=== PATIENT | female | born 2000 | race Caucasian/White ===

== ENCOUNTER 2022-06-11 23:22 | Emergency (ER) | payer MEDICAID, SELFPAY ==
[2022-06-11 23:25] VITALS: BP 124/82; PULSE 92; RESP 20; TEMP 36.4; O2SAT 99; BMI 28.0
--- NOTE | 2022-06-12 01:31 | ED_ITS ---
HPI - Extremity Problem General Chief complaint: Extremity Injury, Upper Stated complaint: finger nail ripped off Time Seen by Provider: 06/12/22 01:28 Source: patient Mode of arrival: ambulatory Limitations: no limitations History of Present Illness HPI Narrative: This is a 21-year-old female no significant medical history presenting with pain to her right thumbnail, patient had acrylic nails, hit her finger against a table in the acrylic nail fall off. Complaining of severe pain at the site. Patient is not up-to-date on a tetanus shot. Denies finger pain able to move her thumb without difficulties. Related Data Previous Rx's Medication Instructions Recorded bacitracin 500 unit/gram topical 1 appl topical Q8H #14 grams 06/12/22 ointment cephalexin 500 mg tablet 500 mg PO Q6H 10 days #40 tabs 06/12/22 doxycycline hyclate 100 mg capsule 100 mg PO BID 10 days #20 caps 06/12/22 Allergies Allergy/AdvReac Type Severity Reaction Status Date / Time No Known Allergies Allergy Unverified 02/28/20 19:37 [No Known Allergies*] Review of Systems Review of Systems: Constitutional : No Weight loss, No Fever, No Chills, No Fatigue, No Malaise ENT/Mouth : No sore throat, No Rhinorrhea Eyes: No Eye Pain, No Swelling, No Redness Cardiovascular : No Chest Pain, No SOB, No Dyspnea on Exertion, No Orthopnea, No Edema, No Palpitations Respiratory : No Cough, No Sputum, No Wheezing Gastrointestinal : No Nausea, No Vomiting, No Diarrhea, No Constipation, No abdominal Pain, No Hematochezia, No Melena Genitourinary : No Dysuria, No Urinary Frequency, No Hematuria, Musculoskeletal : No joint pain, No Myalgias, No Joint Swelling Skin : No Skin Lesions, No rash, + right thumb nail pain Neuro : No Weakness, No Numbness, No Dizziness, No Headache Psych : No Anxiety/Panic, No Depression All other systems reviewed and are negative Yes all other systems are reviewed and are negative [facility] Past Medical History Attestation statement: The following information was validated with the patient. Source: old records reviewed and nursing notes reviewed Physical Exam Vital Signs: Vital Signs: Last Vital Signs Temp 97.6 F 06/11/22 23:25 Pulse 92 06/11/22 23:25 Resp 20 06/11/22 23:25 BP 124/82 06/11/22 23:25 Pulse Ox 99 06/11/22 23:25 O2 Del Method 06/11/22 23:25 BMI result Body Mass Index 28.0 Vital signs stable Appearance: Alert.? Oriented X3.? No acute distress.? Head: Normocephalic, atraumatic, no step-offs or deformities Eyes: Pupils equal, round and reactive to light.? ENT: Pharynx normal.? Neck: Normal inspection.? Neck supple.? CVS: Normal heart rate and rhythm.? Pulses normal.? Respiratory: No respiratory distress.? Breath sounds normal.? Abdomen: Soft and nontender.? Skin: Skin warm and dry.? Normal skin color.? Normal skin turgor.? Extremities: No lower extremity edema.? No calf ttp. 5/5 strength to bilateral upper and lower extremities. 2+ radial pulses equal bilateral. Right thumb nail bed exposed with some mild bleeding. Normal sensation to bilateral upper extremity digits. Full range of motion to all fingers. Neuro: Oriented X 3.? No motor deficit.? No sensory deficit. CN 2-12 intact Course Reevaluation(s) Reevaluation #1: Discussed discharge plan with patient, she verbalizes understanding. Patient finger will be dressed in Xeroform dressing. Tetanus shot will be given as well as Toradol. First dose of Keflex will be given here. Will also give doxycycline. Educated patient on diagnosis and treatment plan, answered all question, patient verbalizes understanding. At this time patient will be discharged home, advised to return with new or worsening symptoms. Educated on worrisome signs and symptoms and when to return. At this time I feel comfortable discharge home. Time: 01:34 Medical Decision Making Medical Decision Making [facility] Narrative: 0133 21-year-old female presents with pain to her right thumb nail bed after her acrylic nail fell off. Physical exam with an exposed nail bed images in the chart Plan at this time is to for irrigation of site, Xeroform dressing will be applied. Patient will be discharged home with Keflex and Toradol will be given for pain. Will give tetanus shot as she is not up-to-date. Critical Care Time Critical Care Time Critical Care Time: No Discharge Plan Discharge Clinical Impression: Injury of nail bed of finger Patient Disposition: Home, Self-Care Additional Instructions: Take your medications as prescribed. If you were prescribed antibiotics today, it is important that you take your medication to their entirety, do not skip any doses, do not finish them early. Follow-up with your primary care provider this week. Return to the emergency department with new or worsening symptoms. Such as fevers, chills, chest pain, shortness of breath, nausea, vomiting, dizziness, headache, vision changes, lethargy In case of emergency call 911 We gave you your tetanus shot today. Please take your antibiotics as prescribed. Please keep the dressing that we put on your finger on for 2-3 days. After that you can put antibiotic on the open wound. Look out for signs of infection such as redness that is streaking up her hand, warmth, fevers, chills, numbness, tingling. Please return with new or worsening symptoms. Prescriptions: New bacitracin 500 unit/gram ointment 1 appl topical Q8H Qty: 14 0RF cephalexin 500 mg tablet 500 mg PO Q6H 10 Days Qty: 40 0RF doxycycline hyclate 100 mg capsule 100 mg PO BID 10 Days Qty: 20 0RF Referrals: ED Physician,Generic [Emergency Provider] - 2 days Stand Alone Forms: Work/School Release
[2022-06-12] MEDS: cephALEXin 500 MG CAPSULE PO (02:09)
[2022-06-12] MEDS: Doxycycline Monohydrate 100 MG CAPSULE PO (02:09)
[2022-06-12] MEDS: Ketorolac Tromethamine 30 MG/ML VIAL IM (02:09)
[2022-06-12] MEDS: Diphth,Pertus(ACell),Tet Adult 0.5 ML SYRINGE IM (02:10)
--- NOTE | 2022-06-12 02:26 | PC.NURSE ---
pt medicated according to mar. R thumb nail wrapped per provider request. xeroform in place. pt able to move extremity appropriately. skin pwd. pt ambulatory at discharge. discharge packet and work note provided. pt verbalized understanding of discharge plan.
== END 2022-06-12 02:28 | disposition home or self-care (01) ==
PROVIDERS: Emergency Provider Internal Medicine
DX: S61.101A Unspecified open wound of right thumb with damage to nail, initial encounter (principal); W22.8XXA Striking against or struck by other objects, initial encounter; Y93.9 Activity, unspecified; Y92.9 Unspecified place or not applicable; Y99.9 Unspecified external cause status; Z23 Encounter for immunization
CPT/HCPCS: 90471; 90715; 96372; 99284; J1885

== ENCOUNTER 2022-06-14 09:44 | Emergency (ER) | payer MEDICAID, SELFPAY ==
[2022-06-14 10:08] VITALS: BP 117/67; PULSE 74; RESP 14; O2SAT 100; BMI 28.1
--- NOTE | 2022-06-14 10:32 | ED.GENADULT ---
HPI - General Adult General Chief complaint: General Medical Stated complaint: thumb nail fell off Time Seen by Provider: 06/14/22 10:17 Source: patient Mode of arrival: ambulatory Limitations: no limitations History of Present Illness HPI narrative: 21-year-old female here with complaints of being unable to remove the bandage applied to her right thumbnail. Patient tells me she was here on 06/12 after her fingernail traumatically was removed and she hit her finger with the attached acrylic nail. She had Xeroform dressing placed and was started on Keflex. Patient tells me she was told to remove the bandage in 48 hours. Patient tells me she was unable to remove it today prompting her to come into the ER to be seen. No fevers, chills. Does report some discomfort to the digit. Patient has been taking her antibiotics as prescribed Related Data Previous Rx's Medication Instructions Recorded bacitracin 500 unit/gram topical 1 appl topical Q8H #14 grams 06/12/22 ointment cephalexin 500 mg tablet 500 mg PO Q6H 10 days #40 tabs 06/12/22 doxycycline hyclate 100 mg capsule 100 mg PO BID 10 days #20 caps 06/12/22 ibuprofen 600 mg tablet 600 mg PO Q6H PRN fever or pain 06/14/22 #30 tabs ondansetron 4 mg disintegrating 4 mg PO Q6H PRN nausea and 06/14/22 tablet vomiting #10 tabs Allergies Allergy/AdvReac Type Severity Reaction Status Date / Time No Known Allergies Allergy Unverified 02/28/20 19:37 [No Known Allergies*] Review of Systems Review of Systems: Yes all other systems are reviewed and are negative Constitutional: Constitutional: Reports no additional constitutional complaints, Denies body ache(s), Denies chills, Denies fever(s), Denies headache(s) and Denies weakness Eyes: Eyes: Reports no additional eye complaints and Denies change in vision ENT: Reports system reviewed and no additional complaints, except as documented, Denies dizziness, Denies headache(s), Denies nasal congestion, Denies nasal discharge and Denies neck pain Cardiovascular: Cardiovascular: Reports no additional cardiovascular complaints, Denies chest pain, Denies leg edema and Denies dyspnea Respiratory: Respiratory: Reports no additional respiratory complaints, Denies cough and Denies dyspnea Gastrointestinal: Gastrointestinal: Reports no additional gastrointestinal complaints, Denies abdominal pain, Denies diarrhea, Denies nausea and Denies vomiting Genitourinary: Genitourinary: Reports no additional female genitourinary complaints and Denies urinary incontinence Musculoskeletal: Musculoskeletal: Reports no additional musculoskeletal complaints, Denies back pain, Denies arthralgias, Denies joint swelling, Denies neck pain, Denies numbness and Denies tingling Integumentary/Breasts: Skin/Breast: Reports system reviewed and no additional complaints, except as docu and Denies rash Neurologic: Reports system reviewed and no additional complaints, except as documented, Denies dizziness, Denies headache(s), Denies numbness, Denies tingling and Denies weakness PMFSH Past Medical History Attestation statement: The following information was validated with the patient. Source: old records reviewed and nursing notes reviewed Social History Social History Substance Use Type: Marijuana Advance Directives: No Advance Directives Information Provided: Yes Physical Exam ED Vital Signs: Vital Signs - 24 hr 06/14/22 10:08 Pulse Rate 74 Respiratory Rate 14 Blood Pressure 117/67 Pulse Oximetry 100 Oxygen Delivery Method Room Air BMI result Body Mass Index 28.1 Const General: cooperative, healthy appearing, comfortable and no acute distress Orientation/consciousness: patient oriented x3 Limitations: no limitations HENMT Head: Yes normal to inspection Ears: hearing grossly normal bilaterally Eyes General: appearance normal, both eyes and all related structures Pupils: Equal, round and reactive pupils present Neck Neck: Yes normal visual inspection, Yes full ROM, Yes no lymphadenopathy and Yes no meningeal signs Chest Chest palpation & inspection: normal inspection of the chest Resp Effort & Inspection: normal respiratory effort Auscultation: clear to auscultation bilaterally Cardio Rate: regular rate Rhythm: regular rhythm Peripheral pulses: Peripheral pulses 2+ throughout GI Inspection: Yes normal to inspection Palpation (GI): Soft to palpation and nontender General: Yes no CVA tenderness Back/Spine/Pelvis Back: no CVA tenderness Thoracic/Lumbar Spine: thoracic and lumbar spine normal to inspection Skin General skin exam: no rashes or lesions noted Neuro General: patient oriented x3, moves all extremities and no meningeal signs Cranial nerves: Yes Equal, round and reactive pupils present Cognition (Neuro): normal cognition Gait exam (Neuro): Normal gait present Extrem Other: To the right thumb there is xeroform present-attached with pain when try to be removed Course Course Course Narrative: xerform from was removed. A new dressing was applied. Patient to be discharged home with continue for plan of care. Reviewed worrisome signs and symptoms of when to return to the emergency room. Comfortable plan for discharge home. Medications Administered Discontinued Medications Generic Name Dose Route Start Last Admin Trade Name Freq PRN Reason Stop Dose Admin Ketorolac Tromethamine 30 mg 06/14/22 11:20 06/14/22 11:39 Ketorolac Tromethamine 30 Mg/Ml Vial IM 06/14/22 11:21 30 mg ONCE ONE Administration Medical Decision Making Medical Decision Making [facility] Narrative: 21 yo female here seeking xeroform dressing removal from right thumb. will soak in peroxide/NS Patient with some discomfort so will give Toradol IM. Patient also with some nausea but took her antibiotic this morning on empty stomach. Patient able to tolerate p.o.. Anticipate discharge home with pain control and antiemetic as needed Differential Diagnosis Differential Diagnoses: The differential diagnosis associated with the presentation includes Lab Data [facility] Lab Attestation statement: I reviewed the patient's lab results. Prescription Management I considered prescription management with: Pain Medication Will send home with ibuprofen. Pain well controlled Toradol here. Do not believe that patient needs additional analgesia Patient had antibiotic home Discharge Plan Discharge Clinical Impression: Change of dressing Patient Disposition: Home, Self-Care Instructions: Bandage Change (ED) Additional Instructions: Continue home medication Prescriptions: New ibuprofen 600 mg tablet 600 mg PO Q6H PRN (Reason: fever or pain) Qty: 30 0RF ondansetron 4 mg tablet,disintegrating 4 mg PO Q6H PRN (Reason: nausea and vomiting) Qty: 10 0RF No Action bacitracin 500 unit/gram ointment 1 appl topical Q8H Qty: 14 0RF cephalexin 500 mg tablet 500 mg PO Q6H 10 Days Qty: 40 0RF doxycycline hyclate 100 mg capsule 100 mg PO BID 10 Days Qty: 20 0RF Referrals: [facility] [Primary Care Provider] - Interventions: ED Discharge Assessment Last Done: 06/14/22 11:48 Discharge Date/Time: 06/14/22 11:48
[2022-06-14] MEDS: Ketorolac Tromethamine 30 MG/ML VIAL IM (11:39)
== END 2022-06-14 11:48 | disposition home or self-care (01) ==
PROVIDERS: Emergency Provider Student in an Organized Health Care Education/Training Program
DX: Z48.00 Encounter for change or removal of nonsurgical wound dressing (principal); S61.101D Unspecified open wound of right thumb with damage to nail, subsequent encounter; X58.XXXD Exposure to other specified factors, subsequent encounter
CPT/HCPCS: 96372; 99283; 99284; J1885

== ENCOUNTER 2022-06-20 08:32 | Emergency (ER) | payer MEDICAID, SELFPAY ==
[2022-06-20 08:36] VITALS: BP 110/81; PULSE 101; RESP 16; TEMP 36.6; O2SAT 99; BMI 26.3
[2022-06-20 08:58] LABS: IDNOW Serial# 6674DD1D; Strep A Nucleic Acid Negative (Negative)
[2022-06-20 09:28] LABS: Influenza A PCR POSITIVE (Negative); Influenza B PCR NEGATIVE (Negative); Resp Syncy Virus RNA Qual PCR NEGATIVE (Negative); SARS COV2 PCR INHOUSE NEGATIVE (Negative)
--- NOTE | 2022-06-20 10:19 | ED_ITS ---
HPI - URI/Sore Throat General Chief Complaint: Upper Respiratory Symptoms Stated Complaint: exposed to black mold, CP, coughing Time Seen by Provider: 06/20/22 09:06 Source: patient Mode of arrival: ambulatory Limitations: no limitations History of Present Illness HPI Narrative: 21-year-old female with past medical history of asthma presents to the emergency department today with a four-day history of cough, sore throat, fever, and body aches. Last fever was 2 days ago and managed with ibuprofen with good effect. She is concerned that she has recently been exposed to black mold in her apartment. She denies any chest pain, nausea, vomiting, diarrhea, constipation, headache, vision changes, or dizziness/lightheadedness. MD elicited complaint: fever, cough and sore throat Onset (ago): day(s) (4) Description of mucous: clear and watery Able to tolerate fluids by mouth: Yes Relieving factors: NSAID Treatments prior to arrival: none Related Data Previous Rx's Medication Instructions Recorded bacitracin 500 unit/gram topical 1 appl topical Q8H #14 grams 06/12/22 ointment cephalexin 500 mg tablet 500 mg PO Q6H 10 days #40 tabs 06/12/22 doxycycline hyclate 100 mg capsule 100 mg PO BID 10 days #20 caps 06/12/22 ibuprofen 600 mg tablet 600 mg PO Q6H PRN fever or pain 06/14/22 #30 tabs ondansetron 4 mg disintegrating 4 mg PO Q6H PRN nausea and 06/14/22 tablet vomiting #10 tabs albuterol sulfate 90 mcg/actuation 2 inh inhalation Q4-6H PRN 06/20/22 breath activated powder inhaler shortness of breath #1 ea benzonatate 100 mg capsule 100 mg PO BID PRN cough #10 caps 06/20/22 Allergies Allergy/AdvReac Type Severity Reaction Status Date / Time No Known Allergies Allergy Unverified 02/28/20 19:37 [No Known Allergies*] Review of Systems Review of Systems: Yes all other systems are reviewed and are negative PMFSH Past Medical History Attestation statement: The following information was validated with the patient. Source: old records reviewed Social History Social History Substance Use Type: Marijuana Advance Directives: No Advance Directives Information Provided: No Physical Exam 2 Vital Signs: Vital Signs: Last Vital Signs Temp 98 F 06/20/22 08:36 Pulse 101 H 06/20/22 08:36 Resp 16 06/20/22 08:36 BP 110/81 06/20/22 08:36 Pulse Ox 99 06/20/22 08:36 O2 Del Method 06/20/22 08:36 BMI result Body Mass Index 26.3 Nursing notes and vital signs reviewed. GENERAL APPEARANCE: A&0 x 4, generally well appearing, no acute distress HENMT: Normal to inspection, atraumatic, face symmetrical. Normal external ears, nose, and oropharynx clear. EYE: PERRLA, EOM intact, structures appear normal NECK: Supple without lymphadenopathy. No stiffness or restricted ROM. CHEST: Normal to inspection HEART: Normal rate and regular rhythm, normal S1/S2, no M/R/G LUNGS: LS CTA, moving air well. Able to speak in complete sentences. No crackles, wheezes, or rhonchi auscultated ABDOMEN: Soft, nontender, nondistended. Normal bowel sounds noted BACK: No CVAT, no obvious deformity EXTREMITIES: Moving all extremities without difficulty. No cyanosis, clubbing, or edema. Normal capillary refill. NEUROLOGICAL: Alert and oriented, moving all 4 extremities with equal strength. CN not formally tested but appearing grossly intact. Observed to ambulate with normal gait. Cognition normal SKIN: Warm and dry without any lesions, rash, or visible sores PSYCH: Cooperative, normal affect, normal thought process Medical Decision Making Medical Decision Making [facility] Narrative: 21-year-old female with past medical history of asthma presents to the emergency department today with a four-day history of cough, sore throat, fever, and body aches. Last fever was 2 days ago and managed with ibuprofen with good effect. She is concerned that she has recently been exposed to black mold in her apartment. Physical exam unremarkable, LS CTA, KEARNEY equally with good strength, and A&O x 4. Serology positive for influenza A. History, physical exam, and diagnostic testing consistent with influenza a upper respiratory infection. Low suspicion at this time for pneumonia or bronchitis. Patient is safe for discharge at this time with plan symptoms with [id number] Tylenol, ibuprofen, and/or cough/cold medications with dosing as directed per packaging. Albuterol inhaler and benzonatate cough suppressant prescribed to her preferred pharmacy for further management of symptoms. HPI, PE, diagnostics, and plan discussed with patient and family with no unanswered questions at this time. Patient educated to return to the emergency department with new, worsening, or concerning emergent symptoms. Recommended to follow-up with her primary care provider for further treatment and management. *Refer to Course for additional information on consultations, diagnostic interpretation, consultations, emergency department stay, conversations with patient and family, shared decision making with patient, and more information on medical decision making* Lab Data Labs: Lab Results 06/20/22 06/20/22 Range/Units 08:42 08:43 Influenza Type A (PCR) POSITIVE A (Negative) Influenza Type B (PCR) NEGATIVE (Negative) RSV RNA Qual (PCR) NEGATIVE (Negative) SARS-CoV-2 RNA (RT-PCR) NEGATIVE (Negative) S. pyogenes GrpA LIBRADO Negative (Negative) Discharge Plan Discharge Clinical Impression: Influenza A Patient Disposition: Home, Self-Care Instructions: Influenza (ED), Droplet Precautions (ED) Additional Instructions: You have been diagnosed with influenza a. This is a viral respiratory infection that requires no prescriptions at this time. You may manage your symptoms with [id number] Tylenol, Motrin, and cough/cold medications with dosing as directed on packaging. Prescriptions for an albuterol inhaler and cough suppressant has been sent to your preferred pharmacy. Please use as directed. Please return to the emergency department with any new, worsening, or concerning emergent symptoms. Please follow-up the primary care provider for further treatment and management. Prescriptions: New albuterol sulfate 90 mcg/actuation aerosol powdr breath activated 2 inh inhalation Q4-6H PRN (Reason: shortness of breath) Qty: 1 0RF benzonatate 100 mg capsule 100 mg PO BID PRN (Reason: cough) Qty: 10 0RF No Action bacitracin 500 unit/gram ointment 1 appl topical Q8H Qty: 14 0RF cephalexin 500 mg tablet 500 mg PO Q6H 10 Days Qty: 40 0RF doxycycline hyclate 100 mg capsule 100 mg PO BID 10 Days Qty: 20 0RF ibuprofen 600 mg tablet 600 mg PO Q6H PRN (Reason: fever or pain) Qty: 30 0RF ondansetron 4 mg tablet,disintegrating 4 mg PO Q6H PRN (Reason: nausea and vomiting) Qty: 10 0RF [place] [facility] [place]] [facility]] [facility] [[facility]] Stand Alone Forms: Work/School Release Interventions: ED Discharge Assessment Last Done: 06/20/22 09:42 Discharge Date/Time: 06/20/22 09:43 Print Language: Hungarian
== END 2022-06-20 09:43 | disposition home or self-care (01) ==
PROVIDERS: Emergency Provider Emergency Medicine Emergency Medical Services
DX: J10.1 Influenza due to other identified influenza virus with other respiratory manifestations (principal); R50.9 Fever, unspecified; Z20.822 Contact with and (suspected) exposure to COVID-19; Z20.828 Contact with and (suspected) exposure to other viral communicable diseases
CPT/HCPCS: 0241U; 87651; 99282

== ENCOUNTER 2023-01-09 16:07 | Emergency (ER) | payer MEDICAID, SELFPAY ==
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
[2023-01-09 16:11] VITALS: BP 131/94; PULSE 84; RESP 18; TEMP 36.3; O2SAT 98; BMI 25.6
[2023-01-09 20:59] LABS: Appearance Urine Clear; Color Urine Yellow; Glucose Urine UA Negative (Negative); Leukocyte Esterase Urine Negative (Negative); Nitrite Urine Negative (Negative); Specific Gravity - Urine >= 1.030 (1.005-1.025); Urine Blood Negative (Negative); Urine Ketones 40 mg/dL (Negative); Urine Protein Negative (Neg-Trace)
[2023-01-09 21:13] LABS: UPreg QC Valid YES; Urine Pregnancy NEGATIVE (NEGATIVE)
[2023-01-09 21:27] LABS: MANUAL DIFF FLAG NO
[2023-01-09 21:28] LABS: Basophils Percent Auto 0.3 % (0-2); Eosinophils Absolute Auto 0.1 X10*3/uL (0.0-0.4); Eosinophils Percent Auto 1.2 % (0-4); Hematocrit 39.8 % (37.0-47.0); Hemoglobin 13.4 g/dl (12.0-16.0); Imm Gran Abs Auto 0.02 X10*3/uL (0.00-0.03); Imm Gran Pct Auto 0.3 % (0.0-0.4); Lymphocytes Absolute Auto 1.9 X10*3/uL (1.2-4.9); Lymphocytes Percent Auto 32.3 % (20-40); Mean Corpuscular HGB Conc 33.7 g/dl (31.0-35.0); Mean Corpuscular Hemoglobin 31.2 pg (27.0-33.0); Mean Corpuscular Volume 92.8 fL (80.0-98.0); Mean Platelet Volume 12.1 fL (9.4-12.3); Monocytes Absolute Auto 0.4 X10*3/uL (0.1-1.2); Monocytes Percent Auto 6.6 % (2-11); Neutrophils Absolute Auto 3.5 x10*3/uL (2.0-8.3); Neutrophils Percent Auto 59.3 % (45-73); Platelet Count 166 X10*3/uL (160-400); Red Blood Count 4.29 X10*6/uL (4.20-5.50); Red Cell Distribution Width 12.1 % (11.0-16.0); White Blood Count 5.9 X10*3/uL (4.8-10.8)
[2023-01-09 21:45] LABS: Alanine Aminotransferase 11 U/L (0-31); Albumin Level 4.6 g/dL (3.5-5.0); Alkaline Phosphatase 36 U/L (39-117); Anion Gap 16 (12-20); Aspartate Amino Transferase 12 U/L (5-31); Bilirubin Direct 0.4 mg/dL (0.0-0.5); Bilirubin Total 1.1 mg/dL (0.0-1.0); Blood Urea Nitrogen 9 mg/dL (9-16); Calcium 9.7 mg/dL (8.4-10.2); Carbon Dioxide 23 mmol/L (22-29); Chloride 106 mmol/L (96-108); Estimated Glomerular Filt Rate > 60; Glucose Random 89 mg/dL (60-115); Potassium 3.2 mmol/L (3.3-5.1); Sodium 142 mmol/L (135-145); Total Protein 7.6 g/dL (6.5-8.0)
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
[2023-01-09] MEDS: Doxycycline Monohydrate 100 MG CAPSULE PO (23:10)
[2023-01-09] MEDS: metroNIDAZOLE 500 MG TABLET PO (23:10)
[2023-01-09] MEDS: cefTRIAXone sodium 500 MG VIAL IM (23:10)
[2023-01-09] MEDS: Ondansetron ODT 4 MG TAB.RAPDIS TRANSLINGU (23:11)
--- NOTE | 2023-01-09 23:23 | PC.NURSE ---
pt medicated per ANDRES- ceftriaxone IM admin in left deltoid- well tolerated by pt.
[2023-01-10 03:24] LABS: CT PCR NOT DETECTED (Not Detect.); NG PCR NOT DETECTED (Not Detect.)
[2023-01-10 03:59] LABS: Syphilis Screen Nonreactive (Nonreactive)
[2023-01-10 04:31] LABS: HBS Num1 2.76 mIU/mL (0-7.99); HBc Num1 0.14 S/CO (0.00-0.79); HBsAGNum1 0.42 S/CO (0.00-0.99); Hepatitis B Core Antibody Nonreactive (Nonreactive); Hepatitis B Surface Antigen Negative (Negative); ~HepC Num1 0.08 S/CO (0.00-0.79); ~Hepatitis B Surface Antibody NONREACTIVE (Nonreactive); ~Hepatitis C Antibody Nonreactive (Nonreactive)
[2023-01-10 04:42] LABS: HIV AB/AG Nonreactive (Nonreactive); HIV Num 1 0.17 S/CO (0.00-0.99)
[2023-01-10 09:25] LABS: BV Int Neg Control Negative (Negative); BV Int Pos Control Positive (Positive)
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
== END 2023-01-09 23:24 | disposition home or self-care (01) ==
PROVIDERS: Nurse Practitioner Family; Physician Assistant; Emergency Provider Internal Medicine
DX: T76.21XA Adult sexual abuse, suspected, initial encounter (principal); Z20.2 Contact with and (suspected) exposure to infections with a predominantly sexual mode of transmission; Z79.899 Other long term (current) drug therapy
CPT/HCPCS: 0353U; 36415; 80048; 80076; 81003; 81025; 85025; 86704; 86706; 86780; 86803; 87340; 87389; 87480; 87510; 87660; 96372; 99283; 99284; J0696

== ENCOUNTER 2023-04-11 14:40 | Emergency (ER) | payer MEDICAID, SELFPAY ==
--- NOTE | ~2023-04-11 | XR_ITS ---
EXAMINATION: XR CHEST CLINICAL INFORMATION: Reason for Exam chest pain COMPARISON: None TECHNIQUE: 2 views of the chest FINDINGS: Lines and tubes: None. Clear lungs. No pleural effusion. No pneumothorax. Normal cardiomediastinal silhouette. XR/XR chest 2V IMPRESSION: * Clear lungs.
[2023-04-11 15:22] VITALS: BP 139/82; PULSE 65; RESP 20; TEMP 37.2; O2SAT 100; BMI 26.5
--- NOTE | 2023-04-11 15:23 | ED_ITS ---
HPI - General Adult General Chief complaint: Chest Pain Stated complaint: Diff breathing/R shoulder pain Time Seen by Provider: 04/11/23 18:42 Source: patient Mode of arrival: ambulatory Limitations: no limitations History of Present Illness HPI narrative: Patient otherwise healthy complaining of pain in the right shoulder and right side of the chest started prior to arrival get worse taking deep breath had mild cough after arrival patient pain is almost gone no shortness of breath no leg swelling no history of DVTs Related Data Previous Rx's Medication Instructions Recorded bacitracin 500 unit/gram topical 1 appl topical Q8H #14 grams 06/12/22 ointment cephalexin 500 mg tablet 500 mg PO Q6H 10 days #40 tabs 06/12/22 doxycycline hyclate 100 mg capsule 100 mg PO BID 10 days #20 caps 06/12/22 ibuprofen 600 mg tablet 600 mg PO Q6H PRN fever or pain 06/14/22 #30 tabs ondansetron 4 mg disintegrating 4 mg PO Q6H PRN nausea and 06/14/22 tablet vomiting #10 tabs albuterol sulfate 90 mcg/actuation 2 inh inhalation Q4-6H PRN 06/20/22 breath activated powder inhaler shortness of breath #1 ea benzonatate 100 mg capsule 100 mg PO BID PRN cough #10 caps 06/20/22 doxycycline monohydrate 100 mg 100 mg PO BID #14 tabs 01/09/23 tablet metronidazole 500 mg tablet 500 mg PO BID 7 days #14 tabs 01/09/23 fluconazole 150 mg tablet 150 mg PO Q3D 2 doses #2 tabs 01/14/23 (Diflucan) ibuprofen 600 mg tablet 600 mg PO Q6H PRN fever or pain 04/11/23 #30 tabs Allergies Allergy/AdvReac Type Severity Reaction Status Date / Time No Known Allergies Allergy Unverified 02/28/20 19:37 [No Known Allergies*] Review of Systems 2 Review of Systems: Yes all other systems are reviewed and are negative [facility] Social History Social History Smoked in Last 30 Days: No Substance Use Type: Marijuana Advance Directives: No Advance Directives Information Provided: No Physical Exam ED Vital Signs: Vital Signs - 24 hr 04/11/23 15:22 04/11/23 18:45 04/11/23 18:47 Temperature 98.9 F 98.3 F Pulse Rate 65 72 Respiratory Rate 20 18 Blood Pressure 139/82 120/87 Pulse Oximetry 100 Oxygen Delivery Method Room Air BMI result Body Mass Index 26.5 Appearance: Alert. Oriented X3. No acute distress. ENT: Pharynx normal. Oral Mucosa moist Neck: Normal inspection. Neck supple. CVS: Normal heart rate and rhythm. Pulses normal. Respiratory: No respiratory distress. Equal air entry bilateral, no wheezing/rales/rhonchi Abdomen: Soft and nontender. Bowel sounds are present, Skin: Skin warm and dry. Normal skin color. Normal skin turgor. Extremities: No lower extremity edema. No calf tenderness Neuro: Oriented X 3. Course Course Course Narrative: This is an RME: Additional HPI, ROS, PE not included below will be deferred to primary provider. This is a [id number], no medical problems, with complaints of sudden onset right sided shoulder pain, atraumatic, radiates down into her arm. Feels SOB, pain worsens with movement of her right shoulder. VSS. Plan: Labs, EKG, chest xray Medical Decision Making Medical Decision Making MDM Narrative: Patient atypical right chest pain no chest pain at this time had some pain when she was lifting her arm on the right side likely rotator cuff questionable musculoskeletal pain chest x-ray negative labs negative Differential Diagnosis Differential Diagnoses: The differential diagnosis associated with the presentation includes Rotator cuff tendinitis/pleurisy/ACS Lab Data [facility] Lab Attestation statement: I reviewed the patient's lab results. 04/11/23 16:27 04/11/23 16:27 Labs: Lab Results 04/11/23 Range/Units 16:27 WBC 11.4 H (4.8-10.8) X10*3/uL RBC 4.32 (4.20-5.50) X10*6/uL Hgb 13.9 (12.0-16.0) g/dl Hct 38.9 (37.0-47.0) % MCV 90.0 (80.0-98.0) fL MCH 32.2 (27.0-33.0) pg MCHC 35.7 H (31.0-35.0) g/dl RDW 11.2 (11.0-16.0) % Plt Count 206 (160-400) X10*3/uL MPV 11.3 (9.4-12.3) fL Immature Gran % (Auto) 0.4 (0.0-0.4) % Neut % (Auto) 80.4 H (45-73) % Lymph % (Auto) 13.8 L (20-40) % Jewell % (Auto) 4.2 (2-11) % Eos % (Auto) 0.8 (0-4) % Baso % (Auto) 0.4 (0-2) % Lymph # (Auto) 1.6 (1.2-4.9) X10*3/uL Jewell # (Auto) 0.5 (0.1-1.2) X10*3/uL Eos # (Auto) 0.1 (0.0-0.4) X10*3/uL Baso # (Auto) 0.0 (0.0-0.2) X10*3/uL Abs Immat Gran (auto) 0.05 H (0.00-0.03) X10*3/uL Absolute Neuts (auto) 9.1 H (2.0-8.3) x10*3/uL Absolute Nucleated RBC 0.000 (0.0-0.012) X10*3/uL Nucleated RBC % (auto) 0.0 (0.0-0.2) /100WBC Sodium 141 (135-145) mmol/L Potassium 3.2 L (3.3-5.1) mmol/L Chloride 105 (96-108) mmol/L Carbon Dioxide 23 (22-29) mmol/L Anion Gap 16 (12-20) BUN 10 (9-16) mg/dL Creatinine 0.74 (0.5-1.4) mg/dL Estim Creat Clear Calc 105.1 Estimated GFR > 60 Random Glucose 88 (60-115) mg/dL Calcium 9.3 (8.4-10.2) mg/dL Total Bilirubin 1.0 (0.0-1.0) mg/dL Direct Bilirubin 0.3 (0.0-0.5) mg/dL AST 13 (5-31) U/L ALT 8 (0-31) U/L Alkaline Phosphatase 32 L (39-117) U/L Troponin I High Sens < 2.7 (<3.5-17.0) ng/L Total Protein 7.5 (6.5-8.0) g/dL Albumin 4.7 (3.5-5.0) g/dL Independent Interpretation I performed an independent interpretation of an: EKG Interpretation: Normal sinus rhythm heart rate 69 beats per minute normal interval normal axis no acute ST deviation no acute ischemia Discharge Plan Discharge Clinical Impression: Chest pain, musculoskeletal Patient Disposition: Home, Self-Care Instructions: Chest Wall Pain (ED) Additional Instructions: Likely had pain from muscular spasm/pleural inflammation Take ibuprofen for pain Follow with PCP as needed Prescriptions: New ibuprofen 600 mg tablet 600 mg PO Q6H PRN (Reason: fever or pain) Qty: 30 0RF No Action bacitracin 500 unit/gram ointment 1 appl topical Q8H Qty: 14 0RF cephalexin 500 mg tablet 500 mg PO Q6H 10 Days Qty: 40 0RF doxycycline hyclate 100 mg capsule 100 mg PO BID 10 Days Qty: 20 0RF ibuprofen 600 mg tablet 600 mg PO Q6H PRN (Reason: fever or pain) Qty: 30 0RF ondansetron 4 mg tablet,disintegrating 4 mg PO Q6H PRN (Reason: nausea and vomiting) Qty: 10 0RF albuterol sulfate 90 mcg/actuation aerosol powdr breath activated 2 inh inhalation Q4-6H PRN (Reason: shortness of breath) Qty: 1 0RF benzonatate 100 mg capsule 100 mg PO BID PRN (Reason: cough) Qty: 10 0RF doxycycline monohydrate 100 mg tablet 100 mg PO BID Qty: 14 0RF metronidazole 500 mg tablet 500 mg PO BID 7 Days Qty: 14 0RF fluconazole [Diflucan] 150 mg tablet 150 mg PO Q3D Qty: 2 0RF Stand Alone Forms: Work/School Release Interventions: ED Discharge Assessment Last Done: 04/11/23 19:32 Discharge Date/Time: 04/11/23 19:32
--- NOTE | 2023-04-11 15:24 | ECG_ITS ---
Test Reason : CP Blood Pressure : / mmHG Vent. Rate : 069 BPM Atrial Rate : 069 BPM P-R Int : 124 ms QRS Dur : 074 ms QT Int : 398 ms P-R-T Axes : 059 080 069 degrees QTc Int : 426 ms Normal sinus rhythm Normal ECG No previous ECGs available Referred By: Diana Concepcion Electronically Signed By:GLADYS PIERCE MD
[2023-04-11 16:31] LABS: MANUAL DIFF FLAG NO
[2023-04-11 16:33] LABS: Basophils Percent Auto 0.4 % (0-2); Eosinophils Absolute Auto 0.1 X10*3/uL (0.0-0.4); Eosinophils Percent Auto 0.8 % (0-4); Hematocrit 38.9 % (37.0-47.0); Hemoglobin 13.9 g/dl (12.0-16.0); Imm Gran Abs Auto 0.05 X10*3/uL (0.00-0.03); Imm Gran Pct Auto 0.4 % (0.0-0.4); Lymphocytes Absolute Auto 1.6 X10*3/uL (1.2-4.9); Lymphocytes Percent Auto 13.8 % (20-40); Mean Corpuscular HGB Conc 35.7 g/dl (31.0-35.0); Mean Corpuscular Hemoglobin 32.2 pg (27.0-33.0); Mean Platelet Volume 11.3 fL (9.4-12.3); Monocytes Absolute Auto 0.5 X10*3/uL (0.1-1.2); Monocytes Percent Auto 4.2 % (2-11); Neutrophils Absolute Auto 9.1 x10*3/uL (2.0-8.3); Neutrophils Percent Auto 80.4 % (45-73); Platelet Count 206 X10*3/uL (160-400); Red Blood Count 4.32 X10*6/uL (4.20-5.50); Red Cell Distribution Width 11.2 % (11.0-16.0); White Blood Count 11.4 X10*3/uL (4.8-10.8)
[2023-04-11 16:46] LABS: Alanine Aminotransferase 8 U/L (0-31); Albumin Level 4.7 g/dL (3.5-5.0); Alkaline Phosphatase 32 U/L (39-117); Anion Gap 16 (12-20); Aspartate Amino Transferase 13 U/L (5-31); Bilirubin Direct 0.3 mg/dL (0.0-0.5); Blood Urea Nitrogen 10 mg/dL (9-16); Calcium 9.3 mg/dL (8.4-10.2); Carbon Dioxide 23 mmol/L (22-29); Chloride 105 mmol/L (96-108); Creatinine Clr Calc Pharmacy 105.1; Estimated Glomerular Filt Rate > 60; Glucose Random 88 mg/dL (60-115); Potassium 3.2 mmol/L (3.3-5.1); Sodium 141 mmol/L (135-145); Total Protein 7.5 g/dL (6.5-8.0)
[2023-04-11 16:54] LABS: Troponin-I High Sensitivity < 2.7 ng/L (<3.5-17.0)
--- NOTE | 2023-04-11 18:43 | PC.NURSE ---
Patient stating she can not wait any longer and she needs to leave. Patient requesting note for work. PA notified, stating he will be able to see patient soon. Patient aware
[2023-04-11 18:45] VITALS: PULSE 72; RESP 18
--- NOTE | 2023-04-11 18:46 | PC.NURSE ---
Patient reports she had sudden on sent right sided chest pain that started around 2pm today, reports pain is now mostly resolved but still hurts if she takes a deep breath or laughs. reports sob that started today. Denies headache, nausea, or vomiting.
[2023-04-11 18:47] VITALS: BP 120/87; TEMP 36.8
== END 2023-04-11 19:32 | disposition home or self-care (01) ==
PROVIDERS: Physician Assistant Medical; Emergency Provider Internal Medicine
DX: R07.89 Other chest pain (principal); R06.02 Shortness of breath; M25.511 Pain in right shoulder; M79.10 Myalgia, unspecified site; Z79.899 Other long term (current) drug therapy
CPT/HCPCS: 36415; 71046; 80048; 80076; 84484; 85025; 93005; 99283; 99285